=== PATIENT | female | born 1980 | race Two or more races ===

== ENCOUNTER → 2017-07-29 | Outpatient (CLI) | payer BC | END | disposition home or self-care (01) | LOC: LAB 10:48 | PROVIDERS: ATTEND Specialist | DX: D26.0 Other benign neoplasm of cervix uteri (principal) ==

== ENCOUNTER → 2019-07-27 | Outpatient (CLI) | payer BC | END | disposition home or self-care (01) | LOC: LAB 10:26 | PROVIDERS: ATTEND Specialist | DX: N91.2 Amenorrhea, unspecified (principal) | CPT/HCPCS: 36415; 84702 ==

== ENCOUNTER 2020-01-01 17:20 | Observation (INO) | payer BC ==
[~2020-01-01] VITALS: Ht 162.6 cm; Wt 96.6 kg
[2020-01-01] MEDS ORDERED: PREN27TA7 OR (17:54)
[2020-01-01] MEDS ORDERED: TERBUTALINE SULFATE 1 MG/ML 1ML VIAL SC SCH (19:00)
[2020-01-01] MEDS ORDERED: TERBUTALINE SULFATE 1 MG/ML 1ML VIAL SC ONE (19:04)
[2020-01-01] MEDS ORDERED: NIFEdipine 10 MG CAP PO ONE (20:00)
== END 2020-01-01 20:17 | disposition home or self-care (01) ==
LOC: LDRP 17:20
PROVIDERS: ADMIT Obstetrics & Gynecology; ATTEND Obstetrics & Gynecology
DX: O60.02 Preterm labor without delivery, second trimester (principal); O26.892 Other specified pregnancy related conditions, second trimester; N89.8 Other specified noninflammatory disorders of vagina; O62.9 Abnormality of forces of labor, unspecified; Z3A.26 26 weeks gestation of pregnancy
CPT/HCPCS: 59025; 76805; 76817; 81002; 84112; 96372; G0378; J3105; Q0114

== ENCOUNTER 2020-01-07 12:46 | Observation (INO) | payer BC ==
[~2020-01-07 12:46] MED LIST: PREN27TA7 OR
[2020-01-07] MEDS ORDERED: HYDR250I6 IM (13:51)
[2020-01-07] MEDS ORDERED: NIF10C GT (13:51)
== END 2020-01-07 13:55 | disposition home or self-care (01) ==
LOC: LDRP 12:46
PROVIDERS: ADMIT Obstetrics & Gynecology; ATTEND Obstetrics & Gynecology
DX: O60.02 Preterm labor without delivery, second trimester (principal); O40.2XX0 Polyhydramnios, second trimester, not applicable or unspecified; Z3A.27 27 weeks gestation of pregnancy
CPT/HCPCS: 59025; 76815; 76817; 81002; G0378

== ENCOUNTER 2020-01-15 10:50 | Observation (INO) | payer BC ==
[~2020-01-15 10:50] MED LIST changes: +HYDR250I6 IM; +NIF10C GT
== END 2020-01-15 11:35 | disposition home or self-care (01) ==
LOC: LDRP 10:50
PROVIDERS: ADMIT Obstetrics & Gynecology; ATTEND Obstetrics & Gynecology
DX: O60.03 Preterm labor without delivery, third trimester (principal); Z3A.28 28 weeks gestation of pregnancy
CPT/HCPCS: 59025; 81002; G0378

== ENCOUNTER 2020-01-22 10:02 | Observation (INO) | payer BC | END 2020-01-22 11:22 | disposition home or self-care (01) | LOC: LDRP 10:02 | PROVIDERS: ADMIT Obstetrics & Gynecology; ATTEND Obstetrics & Gynecology | DX: O60.03 Preterm labor without delivery, third trimester (principal); O09.523 Supervision of elderly multigravida, third trimester; Z3A.29 29 weeks gestation of pregnancy | CPT/HCPCS: 59025; 81002; G0378 ==

== ENCOUNTER 2020-02-02 12:58 | Observation (INO) | payer BC | END 2020-02-02 14:10 | disposition home or self-care (01) | LOC: LDRP 12:58 | PROVIDERS: ADMIT Obstetrics & Gynecology; ATTEND Obstetrics & Gynecology | DX: O60.03 Preterm labor without delivery, third trimester (principal); Z3A.31 31 weeks gestation of pregnancy | CPT/HCPCS: 59025; 76818; 81002; 82948; 82962; G0378 ==

== ENCOUNTER 2020-02-12 13:25 | Observation (INO) | payer BC ==
[2020-02-12] MEDS ORDERED: GLYB2.5T8 PO (14:33)
== END 2020-02-12 14:28 | disposition home or self-care (01) ==
LOC: LDRP 13:25
PROVIDERS: ADMIT Specialist; ATTEND Specialist
DX: O24.419 Gestational diabetes mellitus in pregnancy, unspecified control (principal); O60.03 Preterm labor without delivery, third trimester; O09.523 Supervision of elderly multigravida, third trimester; Z3A.32 32 weeks gestation of pregnancy
CPT/HCPCS: 59025; 76818; 81002; 82948; 82962; G0378

== ENCOUNTER 2020-02-17 10:28 | Observation (INO) | payer BC ==
[~2020-02-17 10:28] MED LIST changes: +GLYB2.5T8 PO
== END 2020-02-17 13:15 | disposition home or self-care (01) ==
LOC: LDRP 10:28
PROVIDERS: ADMIT Obstetrics & Gynecology; ATTEND Obstetrics & Gynecology
DX: O24.410 Gestational diabetes mellitus in pregnancy, diet controlled (principal); O60.03 Preterm labor without delivery, third trimester; O09.523 Supervision of elderly multigravida, third trimester; Z3A.33 33 weeks gestation of pregnancy
CPT/HCPCS: 59025; 76818; 81002; 82948; 82962; G0378

== ENCOUNTER 2020-02-19 11:05 | Observation (INO) | payer BC | END 2020-02-19 12:20 | disposition home or self-care (01) | LOC: LDRP 11:05 | PROVIDERS: ADMIT Obstetrics & Gynecology; ATTEND Obstetrics & Gynecology | DX: O24.419 Gestational diabetes mellitus in pregnancy, unspecified control (principal); O60.03 Preterm labor without delivery, third trimester; Z3A.33 33 weeks gestation of pregnancy | CPT/HCPCS: 59025; 76818; 81002; 82948; 82962; G0378 ==

== ENCOUNTER 2020-02-23 13:05 | Observation (INO) | payer BC ==
[~2020-02-23] VITALS: Ht 162.6 cm; Wt 86.2 kg
[2020-02-23] MEDS ORDERED: BETAMETHASONE ACET (6MG/ML) 5ML VIAL IM ONE (15:15)
== END 2020-02-23 15:30 | disposition home or self-care (01) ==
LOC: LDRP 13:05
PROVIDERS: ADMIT Obstetrics & Gynecology; ATTEND Obstetrics & Gynecology
DX: O60.03 Preterm labor without delivery, third trimester (principal); O24.419 Gestational diabetes mellitus in pregnancy, unspecified control; Z3A.34 34 weeks gestation of pregnancy
CPT/HCPCS: 59025; 76818; 81002; 82962; 84112; 96372; G0378; J0702; Q0114

== ENCOUNTER 2020-02-24 10:15 | Observation (INO) | payer BC ==
[2020-02-24] MEDS ORDERED: BETAMETHASONE ACET (6MG/ML) 5ML VIAL ONE (11:14)
[2020-02-24] MEDS ORDERED: BETAMETHASONE ACET (6MG/ML) 5ML VIAL IM SCH (22:00)
== END 2020-02-24 11:50 | disposition home or self-care (01) ==
LOC: LDRP 10:15
PROVIDERS: ADMIT Specialist; ATTEND Specialist
DX: O60.03 Preterm labor without delivery, third trimester (principal); O24.419 Gestational diabetes mellitus in pregnancy, unspecified control; Z3A.34 34 weeks gestation of pregnancy
CPT/HCPCS: 59025; 81002; 82962; G0378

== ENCOUNTER 2020-03-01 12:57 | Observation (INO) | payer BC | END 2020-03-01 15:24 | disposition home or self-care (01) | LOC: LDRP 12:57 | PROVIDERS: ADMIT Obstetrics & Gynecology; ATTEND Obstetrics & Gynecology | DX: O24.415 Gestational diabetes mellitus in pregnancy, controlled by oral hypoglycemic drugs (principal); O60.03 Preterm labor without delivery, third trimester; Z87.51 Personal history of pre-term labor; Z79.899 Other long term (current) drug therapy; Z3A.35 35 weeks gestation of pregnancy | CPT/HCPCS: 59025; 76818; 81002; 82948; 82962; G0378 ==

== ENCOUNTER 2020-03-04 13:11 | Observation (INO) | payer BC ==
[~2020-03-04 13:11] MED LIST changes: -NIF10C GT; +NIF10C PO; -PREN27TA7 OR; +PREN27TA7 PO
== END 2020-03-04 14:25 | disposition home or self-care (01) ==
LOC: LDRP 13:11
PROVIDERS: ADMIT Obstetrics & Gynecology; ATTEND Obstetrics & Gynecology
DX: O24.419 Gestational diabetes mellitus in pregnancy, unspecified control (principal); O60.03 Preterm labor without delivery, third trimester; Z3A.35 35 weeks gestation of pregnancy
CPT/HCPCS: 59025; 76818; 81002; 82948; 82962; G0378

== ENCOUNTER 2020-03-07 16:30 | Observation (INO) | payer BC | END 2020-03-07 18:23 | disposition home or self-care (01) | LOC: UNDOADMOB 16:30 → LDRP 16:30 → UNDODISOB 18:23 | PROVIDERS: ADMIT Specialist; ATTEND Specialist | DX: O24.419 Gestational diabetes mellitus in pregnancy, unspecified control (principal); O26.873 Cervical shortening, third trimester; Z3A.36 36 weeks gestation of pregnancy | CPT/HCPCS: 59025; 76818; 81002; 82948; 82962; G0378 ==

== ENCOUNTER 2020-03-15 13:45 | Observation (INO) | payer BC ==
[~2020-03-15 13:45] MED LIST changes: +ALBUAER3 IN; +GLYB1.257 PO; -HYDR250I6 IM; +PREN-96 PO
== END 2020-03-15 15:00 | disposition home or self-care (01) ==
LOC: LDRP 13:45
PROVIDERS: ADMIT Specialist; ATTEND Specialist
DX: O24.419 Gestational diabetes mellitus in pregnancy, unspecified control (principal); Z3A.37 37 weeks gestation of pregnancy
CPT/HCPCS: 59025; 76818; 81002; G0378

== ENCOUNTER 2020-03-18 13:00 | Observation (INO) | payer BC | END 2020-03-18 15:00 | disposition home or self-care (01) | LOC: LDRP 13:00 | PROVIDERS: ADMIT Specialist; ATTEND Specialist | DX: O24.419 Gestational diabetes mellitus in pregnancy, unspecified control (principal); Z3A.37 37 weeks gestation of pregnancy | CPT/HCPCS: 59025; 76818; 81002; 82948; 82962; G0378 ==

== ENCOUNTER → 2020-03-22 | Outpatient (CLI) | payer BC ==
[2020-03-22 08:28] LABS: Basophils # (auto) 0 10 ^3/uL (0-0.2); Basophils % (auto) 0.5 % (0.0-2.0); Eosinophils # (auto) 0.1 10 ^3/uL (0-0.8); Eosinophils % (auto) 1.6 % (0.0-7.0); Lymphocytes % (auto) 30.4 % (10.0-50.0); Mean Corpuscular Hemoglobin 27.4 pg (28.0-32.0); Mean Corpuscular Hgb Conc. 32.5 g/dL (32.0-36.0); Mean Corpuscular Volume 84.2 fL (80.0-100.0); Monocytes # (auto) 0.5 10 ^3/uL (0-1.3); Monocytes % (auto) 7.5 % (0.0-12.0); Nucleated Red Blood Cells % 0.1 %; Platelet Count (auto) 227 10^3/uL (140-450); Red Blood Cells 4.39 10^6/uL (4.0-5.20); Red Cell Distribution Width 16.9 % (11.8-14.3); White Blood Cell 6.7 10^3/uL (4.4-10.8)
[2020-03-23 05:07] LABS: RPR Non Reactive (Non Reactive)
== END | disposition home or self-care (01) ==
LOC: LAB 07:57
PROVIDERS: ATTEND Obstetrics & Gynecology
DX: O09.90 Supervision of high risk pregnancy, unspecified, unspecified trimester (principal); Z11.3 Encounter for screening for infections with a predominantly sexual mode of transmission; Z3A.38 38 weeks gestation of pregnancy
CPT/HCPCS: 36415; 84112; 85025; 86592

== ENCOUNTER 2020-03-25 10:04 | Inpatient (IN) | payer BC ==
[~2020-03-25] VITALS: Ht 162.6 cm; Wt 98.5 kg
[2020-03-25] MEDS ORDERED: miSOPROStol 50 MCG per PRE-CUT 1/2 TAB PO ONE (11:45)
[2020-03-25] MEDS ORDERED: PROMETHAZINE HCL 25 MG/ML 1ML IV PRN (12:00)
[2020-03-25] MEDS ORDERED: PHISODERM TOP SOLN 240ML BTL TOP PRN (12:00)
[2020-03-25] MEDS ORDERED: WITCH HAZEL-GLYCERIN PAD TOP PRN (12:00)
[2020-03-25] MEDS ORDERED: DERMOPLAST 60ML BOTTLE TOP PRN (12:00)
[2020-03-25] MEDS ORDERED: LIDOCAINE 2%HCL (LOCAL ANESTH.) INJ 20ML MDV IJ ONE ×2 (12:00→19:15)
[2020-03-25] MEDS ORDERED: BUTORPHANOL TARTRATE 2 MG/1 ML VIAL IV PRN ×2 (12:00)
[2020-03-25 12:55] LABS: Alcohol, Urine < 3.0 mg/dL (0-10); Amphetamine Screen, Urine NEGATIVE (NEGATIVE); Barbiturate Scree,Urine NEGATIVE (NEGATIVE); Benzodiazephine Screen, Urine NEGATIVE (NEGATIVE); Cannabinoid Screen, Urine NEGATIVE (NEGATIVE); Cocaine Screen, Urine NEGATIVE (NEGATIVE); Opiate Scree,Urine NEGATIVE (NEGATIVE); Phencyclidine Screen, Urine NEGATIVE (NEGATIVE); Urine Bacteria MANY /hpf (None Seen); Urine Blood 3+ /uL (Negative); Urine Mucus FEW (None Seen); Urine Specific Gravity 1.017 (1.001-1.035); Urine WBC 782 /hpf (0 - 5); Urine WBC Clumps PRESENT /hpf (None Seen)
[2020-03-25] MEDS: LACTATED RINGER'S 1,000 ML IV SCH ×2 (13:18→21:09)
[2020-03-25] MEDS ORDERED: PENICILLIN G POT 5MIL/D5 50ML 50 ML IV ONE ×2 (13:30→13:31)
[2020-03-25] MEDS ORDERED: LACT. RINGERS/OXYTOCIN 20UNITS 1,000 ML IV PRN (15:15)
[2020-03-25 15:19] LABS: Basophils # (auto) 0 10 ^3/uL (0-0.2); Basophils % (auto) 0.3 % (0.0-2.0); Eosinophils # (auto) 0.1 10 ^3/uL (0-0.8); Eosinophils % (auto) 1.1 % (0.0-7.0); Hematocrit 33.2 % (36.0-46.0); Lymphocytes # (auto) 2.2 10 ^3/uL (0.4-5.4); Lymphocytes % (auto) 27.6 % (10.0-50.0); Mean Corpuscular Hemoglobin 27.9 pg (28.0-32.0); Mean Corpuscular Hgb Conc. 33.2 g/dL (32.0-36.0); Monocytes # (auto) 0.4 10 ^3/uL (0-1.3); Monocytes % (auto) 5.2 % (0.0-12.0); Neutrophils # (auto) 5.2 10 ^3/uL (1.6-8.6); Neutrophils % (auto) 65.8 % (37.0-80.0); Nucleated Red Blood Cells % 0.1 %; Platelet Count (auto) 210 10^3/uL (140-450); Red Blood Cells 3.95 10^6/uL (4.0-5.20); Red Cell Distribution Width 17.2 % (11.8-14.3); White Blood Cell 7.9 10^3/uL (4.4-10.8)
[2020-03-25 15:36] LABS: Albumin 2.3 g/dL (3.4-5.0); Calcium 8.3 mg/dL (8.5-10.1); Potassium 3.9 mmol/L (3.5-5.1); Uric Acid 4.2 mg/dL (2.6-6.0)
[2020-03-25 15:38] LABS: BUN/Creatinine Ratio 14.3; Bilirubin, Total 0.2 mg/dL (0.2-1.0); Total Protein 6.2 g/dL (6.4-8.2)
[2020-03-25 16:31] LABS: INR 0.94 (0.9-1.15); Partial Thromboplastin Time 25.6 sec (23.0-31.2)
[2020-03-25] MEDS ORDERED: PENICILLIN G POTASSIUM 2,500,000 UNITS in D5W 5% 50 ML IV SCH (18:30)
[2020-03-25] MEDS ORDERED: fentaNYL CITRATE 100 MCG/2 ML VL IV ONE (19:15)
[2020-03-25] MEDS ORDERED: NALOXONE HCL 0.4 MG/ML VIAL IV ONE ×3 (19:15→21:00)
[2020-03-25] MEDS ORDERED: ROPIVACAINE HCL 200 ML EPI SCH (19:15)
[2020-03-25] MEDS ORDERED: ePHEDrine SULFATE 50 MG/ML AMP IV ONE ×3 (19:15→21:00)
[2020-03-25] MEDS ORDERED: LIDOCAINE HCL 2 %PF INJ 10ML AMP IJ ONE ×2 (20:15→20:18)
[2020-03-25] MEDS ORDERED: LACT. RINGERS/OXYTOCIN 20UNITS 1,000 ML IV SCH (20:15)
[2020-03-25] MEDS ORDERED: LACTATED RINGER'S 500 ML IV ONE (21:00)
[2020-03-25] MEDS ORDERED: ROPIVACAINE HCL 100 ML EPI SCH (21:00)
[2020-03-25] MEDS ORDERED: SODIUM CHLORIDE 0.9% 500 ML IV PRN (21:00)
[2020-03-25 21:44] LABS: Basophils # (auto) 0 10 ^3/uL (0-0.2); Basophils % (auto) 0.5 % (0.0-2.0); Eosinophils # (auto) 0.1 10 ^3/uL (0-0.8); Eosinophils % (auto) 1.1 % (0.0-7.0); Hemoglobin 10.9 g/dL (12.2-16.2); Lymphocytes # (auto) 2.5 10 ^3/uL (0.4-5.4); Lymphocytes % (auto) 27.9 % (10.0-50.0); Mean Corpuscular Hemoglobin 27.3 pg (28.0-32.0); Mean Corpuscular Hgb Conc. 32.2 g/dL (32.0-36.0); Mean Corpuscular Volume 84.9 fL (80.0-100.0); Monocytes # (auto) 0.5 10 ^3/uL (0-1.3); Monocytes % (auto) 5.5 % (0.0-12.0); Neutrophils # (auto) 5.8 10 ^3/uL (1.6-8.6); Nucleated Red Blood Cells % 0.1 %; Platelet Count (auto) 217 10^3/uL (140-450); Red Cell Distribution Width 17.4 % (11.8-14.3); White Blood Cell 8.9 10^3/uL (4.4-10.8)
[2020-03-25] MEDS ORDERED: D5W/LACTATED RINGERS 1,000 ML IV SCH (22:15)
[2020-03-26] MEDS ORDERED: METHYLERGONOVINE MALEATE 0.2 MG/ML AMP IM ONE (01:12)
[2020-03-26] MEDS ORDERED: miSOPROStol 100 mcg TAB ONE (01:13)
[2020-03-26] MEDS ORDERED: LACT. RINGERS/OXYTOCIN 20UNITS 1,000 ML IV ONE (01:30)
--- NOTE | 2020-03-26 04:45 | NUR ---
Ambulation: Patient OOB with standby assistance by RN. Patient ambulated to bathroom with steady gait. Patient able to void 800ml of clear yellow urine without difficulty. [facility] teaching provided with returned demonstration by patient. Clean gown provided and bed linen changed. Patient ambulated back to bed with steady gait and no distress noted.
[2020-03-26 05:06] LABS: RPR Non Reactive (Non Reactive)
[2020-03-26] MEDS: IBUPROFEN 600 MG TAB PO PRN ×4 (09:10→20:05)
[2020-03-26 11:00] VITALS: BP 127/71
[2020-03-26 15:00] VITALS: BP 116/51
[2020-03-26 18:45] VITALS: BP 136/67
[2020-03-26] MEDS ORDERED: ACETAMINOPHEN 325 MG TAB PO PRN (20:00)
[2020-03-26] MEDS ORDERED: HYDROcodone-ACET 10/325MG TAB PO PRN (20:00)
[2020-03-26] MEDS: DOCUSATE SOD 100 MG CAP PO SCH (21:53)
[2020-03-26 23:00] VITALS: BP 136/81
[2020-03-27] MEDS: IBUPROFEN 600 MG TAB PO PRN (02:14)
[2020-03-27 03:00] VITALS: BP 128/72
[2020-03-27 06:40] VITALS: BP 123/73
[2020-03-27] MEDS: DOCUSATE SOD 100 MG CAP PO SCH (10:00)
[2020-03-27 10:32] VITALS: BP 131/80
--- NOTE | 2020-03-27 11:05 | NUR ---
Discharge: Discharge instructions given as ordered by Dr Urrutia. Pt encouraged to make follow up appointment on Saturday03/28/[address] Salinas for two weeks. Patient received [facility] [employer] handout and received teaching on post warning signs. All questions and concerns were addressed. Patient verbalized understanding. Medication reconciliation completed and copy given to patient. All required/requested vaccines given and copies of vaccinations given to patient. Patient encouraged to prepare to depart unit.
--- NOTE | 2020-03-27 11:20 | NUR ---
Discharge: Patient ambulates off unit with all personal belongings and copies of discharge and handouts, accompanied by staff and family member. No distress noted at time of departure, no adverse changes in status since initial assessment.
== END 2020-03-27 11:20 | disposition home or self-care (01) | DRG 807 ==
LOC: LDRP 10:04 → OBSVTOIN 10:04 → LDRP 03-26 06:22
PROVIDERS: ADMIT Specialist; ATTEND Specialist
PROC: 3E0R3BZ Introduction of Anesthetic Agent into Spinal Canal, Percutaneous Approach (ICD-10-PCS; 2020-03-25)
PROC: 00HU33Z Insertion of Infusion Device into Spinal Canal, Percutaneous Approach (ICD-10-PCS; 2020-03-25)
PROC: 10E0XZZ Delivery of Products of Conception, External Approach (ICD-10-PCS; principal; 2020-03-26)
PROC: 0W8NXZZ Division of Female Perineum, External Approach (ICD-10-PCS; 2020-03-26)
DX: O42.92 Full-term premature rupture of membranes, unspecified as to length of time between rupture and onset of labor (principal); Z37.0 Single live birth; Z3A.39 39 weeks gestation of pregnancy; Z86.32 Personal history of gestational diabetes; Z20.828 Contact with and (suspected) exposure to other viral communicable diseases
CPT/HCPCS: 36415; 59025; 59409; 62282; 80053; 80307; 81001; 81002; 82948; 82962; 84112; 84550; 85025; 85610; 85730; 86592; 86850; 86900; 86901; 87426; 96360; 96361; 96365; 96366; G0378; J2540; J2590; J7060

== ENCOUNTER 2020-07-14 07:00 | Emergency (ER) | payer SELFPAY ==
[~2020-07-14] VITALS: Ht 162.6 cm; Wt 90.7 kg
[~2020-07-14 07:00] MED LIST changes: -GLYB1.257 PO; -GLYB2.5T8 PO; -NIF10C PO; -PREN27TA7 PO
[2020-07-14 07:42] VITALS: BP 124/53
== END 2020-07-14 08:05 | disposition home or self-care (01) ==
LOC: ER 07:00
DX: B02.9 Zoster without complications (principal); Z79.899 Other long term (current) drug therapy

== ENCOUNTER → 2022-03-20 | Outpatient (CLI) | payer BC ==
[2022-03-20 09:52] LABS: Basophils # (auto) 0 10 ^3/uL (0-0.2); Basophils % (auto) 0.4 % (0.0-2.0); Eosinophils # (auto) 0.1 10 ^3/uL (0-0.8); Eosinophils % (auto) 1.8 % (0.0-7.0); Hematocrit 40.5 % (36.0-46.0); Lymphocytes # (auto) 2.9 10 ^3/uL (0.4-5.4); Lymphocytes % (auto) 38.2 % (10.0-50.0); Mean Corpuscular Hemoglobin 28.5 pg (28.0-32.0); Mean Corpuscular Hgb Conc. 32.2 g/dL (32.0-36.0); Mean Corpuscular Volume 88.6 fL (80.0-100.0); Monocytes # (auto) 0.3 10 ^3/uL (0-1.3); Monocytes % (auto) 4.3 % (0.0-12.0); Neutrophils # (auto) 4.1 10 ^3/uL (1.6-8.6); Neutrophils % (auto) 55.3 % (37.0-80.0); Red Blood Cells 4.57 10^6/uL (4.0-5.20); Red Cell Distribution Width 13.4 % (11.8-14.3); White Blood Cell 7.5 10^3/uL (4.4-10.8)
[2022-03-20 09:53] LABS: Urine Bacteria NONE SEEN /hpf (None Seen); Urine Blood Negative /uL (Negative); Urine Specific Gravity 1.021 (1.001-1.035); Urine WBC <1 /hpf (0 - 5)
[2022-03-20 10:07] LABS: Albumin 3.7 g/dL (3.4-5.0); Potassium 4.1 mmol/L (3.5-5.1)
[2022-03-20 10:12] LABS: BUN/Creatinine Ratio 20.9; Bilirubin, Total 0.3 mg/dL (0.2-1.0); Total Protein 8.1 g/dL (6.4-8.2)
== END | disposition home or self-care (01) ==
LOC: LAB 09:24
PROVIDERS: ATTEND Student in an Organized Health Care Education/Training Program
DX: R73.9 Hyperglycemia, unspecified (principal); E55.9 Vitamin D deficiency, unspecified; R03.0 Elevated blood-pressure reading, without diagnosis of hypertension
CPT/HCPCS: 36415; 80053; 80061; 81001; 82306; 83036; 84439; 84443; 85025

== ENCOUNTER 2023-03-21 12:32 | Inpatient (IN) | payer BC ==
[~2023-03-21] VITALS: Ht 162.6 cm; Wt 106.2 kg
[2023-03-21] MEDS ORDERED: SODIUM CHLORIDE 0.9% 1,000 ML IV ONE (12:45)
[2023-03-21 13:12] VITALS: PULSE 127; RESP 17; O2SAT 100
[2023-03-21 13:38] LABS: Basophils # (auto) 0.1 10 ^3/uL (0-0.2); Basophils % (auto) 0.3 % (0.0-2.0); Eosinophils # (auto) 0 10 ^3/uL (0-0.8); Eosinophils % (auto) 0.1 % (0.0-7.0); Hematocrit 33.8 % (36.0-46.0); Hemoglobin 10.9 g/dL (12.2-16.2); Lymphocytes # (auto) 2.9 10 ^3/uL (0.4-5.4); Lymphocytes % (auto) 12.5 % (10.0-50.0); Mean Corpuscular Hemoglobin 29.3 pg (28.0-32.0); Mean Corpuscular Hgb Conc. 32.4 g/dL (32.0-36.0); Mean Corpuscular Volume 90.6 fL (80.0-100.0); Monocytes # (auto) 0.6 10 ^3/uL (0-1.3); Monocytes % (auto) 2.4 % (0.0-12.0); Neutrophils # (auto) 19.6 10 ^3/uL (1.6-8.6); Neutrophils % (auto) 84.7 % (37.0-80.0); Red Blood Cells 3.73 10^6/uL (4.0-5.20); Red Cell Distribution Width 14.1 % (11.8-14.3); White Blood Cell 23.1 10^3/uL (4.4-10.8)
[2023-03-21 13:58] LABS: Alanine Aminotransferase 35 U/L (7-40); Albumin 4.5 g/dL (3.2-4.8); Alkaline Phosphatase 57 U/L (46-116); Anion Gap 11 (5-15); Aspartate Aminotransferase 26 U/L (13-40); BUN/Creatinine Ratio 13.4 (10.0-20.0); Bilirubin, Total 0.2 mg/dL (0.2-1.0); Blood Urea Nitrogen 18 mg/dL (9-23); Calcium 9.2 mg/dL (8.7-10.4); Carbon Dioxide 18 mmol/L (20-30); Chloride 107 mmol/L (98-107); Glucose 222 mg/dL (74-106); Lipase 46 U/L (12-53); Magnesium 1.9 mg/dL (1.6-2.6); Potassium 5.3 mmol/L (3.5-5.1); Sodium 136 mmol/L (136-145); Total Protein 6.8 g/dL (5.7-8.2)
[2023-03-21 14:01] LABS: Lactic Acid w/Reflex 5.1 mmol/L (0.4-2.0)
[2023-03-21] MEDS ORDERED: cefTRIAXone 1GM/50ML D5W 50 ML IV ONE (14:15)
[2023-03-21] MEDS ORDERED: VANCOMYCIN 1GM/250ML 250 ML IV ONE (14:15)
[2023-03-21] MEDS ORDERED: SODIUM CHLORIDE 0.9% 2,850 ML IV ONE (14:30)
[2023-03-21 16:08] LABS: Urine Bacteria NONE SEEN /hpf (None Seen); Urine Blood Negative /uL (Negative); Urine Clarity HAZY (Clear); Urine Color Yellow (Yellow); Urine Hyaline Cast MOD /lpf (0 - 2); Urine Mucus FEW (None Seen); Urine Protein, UAD 2+ (Negative); Urine Specific Gravity 1.016 (1.001-1.035); Urine Urobilinogen Normal (Negative); Urine WBC 2 /hpf (0 - 5)
[2023-03-21] MEDS ORDERED: SODIUM CHLORIDE 0.9% 1,000 ML IV SCH (16:15)
[2023-03-21] MEDS ORDERED: ONDANSETRON HCL 4 MG/2 ML VIAL IV PRN ×2 (16:15→18:00)
[2023-03-21] MEDS ORDERED: MIDAZOLAM HCL 2MG/2ML 2ml VIAL (1mg/ml) ONE (16:28)
[2023-03-21] MEDS ORDERED: MEPERIDINE HCL (25 MG/ML) 1ML VIAL ONE (16:28)
[2023-03-21] MEDS ORDERED: fentaNYL CITRATE 100 MCG/2 ML VL ONE (16:28)
[2023-03-21 16:44] LABS: INR 0.99 (0.9-1.15); Partial Thromboplastin Time 25.7 SEC (24.5-34.5); Prothrombin Time 10.4 sec (9.3-11.8)
[2023-03-21] MEDS ORDERED: ONDANSETRON HCL 4 MG/2 ML VIAL ONE (17:08)
[2023-03-21] MEDS ORDERED: DexAMETHasone SOD PHOS 10MG/1ML VIAL INJ ONE (17:08)
[2023-03-21] MEDS ORDERED: PROPOFOL 10 MG/ML 20 ML IV ONE (17:08)
[2023-03-21] MEDS ORDERED: SUGAMMADEX 200mg/2ml Vial (100MG/ML) IV ONE (17:09)
[2023-03-21 17:28] VITALS: O2SAT 100
[2023-03-21] MEDS ORDERED: MIDAZOLAM HCL 2MG/2ML 2ml VIAL (1mg/ml) IV PRN (18:00)
[2023-03-21] MEDS ORDERED: ePHEDrine SULFATE 50 MG/ML AMP IV PRN (18:00)
[2023-03-21] MEDS ORDERED: LABETALOL HCL 5 MG/ML 4ML SYRINGE IV PRN (18:00)
[2023-03-21] MEDS ORDERED: MORPHINE SULFATE 4 MG/ML SYR/VIAL IV PRN (18:00)
[2023-03-21] MEDS ORDERED: HYDROmorphone HCL 2 MG/ML VL/or syr IV PRN ×2 (18:00→19:00)
[2023-03-21] MEDS ORDERED: NITROGLYCERIN 0.4 MG SL TAB SL PRN (18:15)
[2023-03-21] MEDS ORDERED: MORPHINE SULFATE INJ 2 MG/ml SYRG IV PRN (18:15)
[2023-03-21] MEDS ORDERED: ALBUTEROL SULF 2.5 MG/0.5ML(0.5%) NEB SOLN NEB PRN (18:45)
[2023-03-21] MEDS ORDERED: IPRATROPIUM BROM 0.5 MG/2.5ML INH SOL NEB PRN (18:45)
[2023-03-21 18:58] VITALS: BP 143/59; PULSE 87; RESP 20; TEMP 98.3; O2SAT 100
[2023-03-21] MEDS: HYDROmorphone HCL 2 MG/ML VL/or syr IV PRN ×2 (20:12→23:28)
[2023-03-21] MEDS: ceFAZolin 1GM/50ML 50 ML IV SCH (21:50)
[2023-03-21] MEDS: LACTATED RINGER'S 1,000 ML IV SCH (21:52)
[2023-03-21 22:00] VITALS: PULSE 112; RESP 21; O2SAT 99
[2023-03-21] MEDS ORDERED: FLUT500M2 INH (22:24)
[2023-03-21 22:49] LABS: Basophils # (auto) 0 10 ^3/uL (0-0.2); Basophils % (auto) 0.1 % (0.0-2.0); Eosinophils # (auto) 0 10 ^3/uL (0-0.8); Hematocrit 32.6 % (36.0-46.0); Hemoglobin 10.8 g/dL (12.2-16.2); Lymphocytes # (auto) 1.5 10 ^3/uL (0.4-5.4); Mean Corpuscular Hgb Conc. 33.1 g/dL (32.0-36.0); Mean Corpuscular Volume 90.7 fL (80.0-100.0); Monocytes # (auto) 0.3 10 ^3/uL (0-1.3); Monocytes % (auto) 2.2 % (0.0-12.0); Neutrophils # (auto) 13.4 10 ^3/uL (1.6-8.6); Neutrophils % (auto) 87.7 % (37.0-80.0); Red Cell Distribution Width 14.5 % (11.8-14.3); White Blood Cell 15.3 10^3/uL (4.4-10.8)
[2023-03-21 23:00] VITALS: O2SAT 97
[2023-03-22] VITALS (10 sets, daily range): BP systolic 104–127; BP diastolic 39–54; PULSE 78–110; RESP 16–22; TEMP 98.2–98.8; O2SAT 90–100
[2023-03-22] MEDS ORDERED: diphenhdrAMINE HCL 50 MG/1 ML VL IV PRN (01:15)
[2023-03-22] MEDS: HYDROmorphone HCL 2 MG/ML VL/or syr IV PRN (05:33)
[2023-03-22] MEDS: ceFAZolin 1GM/50ML 50 ML IV SCH ×3 (05:33→21:33)
[2023-03-22] MEDS: LACTATED RINGER'S 1,000 ML IV SCH ×2 (05:47→11:01)
[2023-03-22 06:02] LABS: Basophils # (auto) 0 10 ^3/uL (0-0.2); Eosinophils # (auto) 0 10 ^3/uL (0-0.8); Hematocrit 28.3 % (36.0-46.0); Hemoglobin 9.5 g/dL (12.2-16.2); Lymphocytes % (auto) 11.6 % (10.0-50.0); Mean Corpuscular Hemoglobin 30.2 pg (28.0-32.0); Mean Corpuscular Hgb Conc. 33.6 g/dL (32.0-36.0); Mean Corpuscular Volume 89.9 fL (80.0-100.0); Monocytes # (auto) 0.7 10 ^3/uL (0-1.3); Monocytes % (auto) 3.9 % (0.0-12.0); Neutrophils # (auto) 14.8 10 ^3/uL (1.6-8.6); Neutrophils % (auto) 84.5 % (37.0-80.0); Red Blood Cells 3.15 10^6/uL (4.0-5.20); Red Cell Distribution Width 14.5 % (11.8-14.3); White Blood Cell 17.4 10^3/uL (4.4-10.8)
[2023-03-22] MEDS ORDERED: BISACODYL 10 MG RECT SUPP PR PRN (08:15)
[2023-03-22] MEDS ORDERED: HYDROcodone-ACET 5/325MG TAB PO PRN (08:15)
[2023-03-22] MEDS ORDERED: HYDR-4902 PO (08:16)
[2023-03-22] MEDS ORDERED: DOCU-94 PO (08:16)
[2023-03-22 09:55] LABS: Hematocrit 27.5 % (36.0-46.0); Hemoglobin 9.1 g/dL (12.2-16.2)
[2023-03-22] MEDS ORDERED: DOCUSATE CALCIUM 240 MG CAP PO SCH (10:00)
[2023-03-22] MEDS: DOCUSATE SOD 100 MG CAP PO SCH ×2 (10:58→21:33)
[2023-03-22] MEDS: IBUPROFEN 800 MG TAB PO PRN ×2 (12:55→20:11)
[2023-03-22] MEDS ORDERED: MORPHINE SULFATE INJ 2 MG/ml SYRG IV PRN (17:15)
[2023-03-22 22:41] LABS: Hemoglobin 7.7 g/dL (12.2-16.2)
[2023-03-23] VITALS (7 sets, daily range): BP systolic 131–140; BP diastolic 64–109; PULSE 72–111; RESP 16–20; TEMP 98.3–99.3; O2SAT 97–98
[2023-03-23] MEDS: LACTATED RINGER'S 1,000 ML IV SCH (05:26)
[2023-03-23] MEDS: ceFAZolin 1GM/50ML 50 ML IV SCH (05:34)
[2023-03-23] MEDS: IBUPROFEN 800 MG TAB PO PRN (05:39)
[2023-03-23 06:06] LABS: Basophils # (auto) 0.1 10 ^3/uL (0-0.2); Basophils % (auto) 0.6 % (0.0-2.0); Eosinophils # (auto) 0 10 ^3/uL (0-0.8); Eosinophils % (auto) 0.1 % (0.0-7.0); Hemoglobin 9.9 g/dL (12.2-16.2); Lymphocytes # (auto) 4.4 10 ^3/uL (0.4-5.4); Lymphocytes % (auto) 32.5 % (10.0-50.0); Mean Corpuscular Hemoglobin 30.5 pg (28.0-32.0); Mean Corpuscular Volume 89.6 fL (80.0-100.0); Monocytes # (auto) 0.8 10 ^3/uL (0-1.3); Monocytes % (auto) 5.6 % (0.0-12.0); Neutrophils # (auto) 8.4 10 ^3/uL (1.6-8.6); Neutrophils % (auto) 61.2 % (37.0-80.0); Nucleated Red Blood Cells % 0.1 %; Red Blood Cells 3.23 10^6/uL (4.0-5.20); Red Cell Distribution Width 14.4 % (11.8-14.3); White Blood Cell 13.6 10^3/uL (4.4-10.8)
== END 2023-03-23 12:00 | disposition home or self-care (01) | DRG 817 ==
LOC: ER 12:32 → EDBD 12:32 → ER 15:58 → OVERFLOW 18:02 → TELE-EAST 19:59
PROVIDERS: ADMIT Obstetrics & Gynecology; ATTEND Obstetrics & Gynecology
PROC: 0UT70ZZ Resection of Bilateral Fallopian Tubes, Open Approach (ICD-10-PCS; 2023-03-21)
PROC: 10T20ZZ Resection of Products of Conception, Ectopic, Open Approach (ICD-10-PCS; 2023-03-21)
PROC: 0UPD0HZ Removal of Contraceptive Device from Uterus and Cervix, Open Approach (ICD-10-PCS; 2023-03-21)
PROC: 30233N1 Transfusion of Nonautologous Red Blood Cells into Peripheral Vein, Percutaneous Approach (ICD-10-PCS; principal; 2023-03-21 16:26)
DX: O00.101 Right tubal pregnancy without intrauterine pregnancy (principal); K66.1 Hemoperitoneum; D62 Acute posthemorrhagic anemia; N17.9 Acute kidney failure, unspecified; Z68.41 Body mass index [BMI] 40.0-44.9, adult; D72.829 Elevated white blood cell count, unspecified; J45.909 Unspecified asthma, uncomplicated; N18.9 Chronic kidney disease, unspecified; E66.01 Morbid (severe) obesity due to excess calories
CPT/HCPCS: 36415; 76801; 76817; 80053; 81001; 83605; 83690; 83735; 84702; 85014; 85018; 85025; 85610; 85730; 86850; 86900; 86901; 86920; 87040; 93005; 94640; 99291; G0378; J0690; J0696; J1100; J2250; J2405; J2704

== ENCOUNTER → 2024-02-26 | Outpatient (CLI) | payer BC ==
[~2024-02-26] MED LIST changes: +DOCU-94 PO; +FLUT500M2 INH; +HYDR-4902 PO; -PREN-96 PO
[2024-02-26 10:03] LABS: Urine Bacteria None Seen /hpf (None Seen)
[2024-02-26 11:10] LABS: Basophils # (auto) 0 10 ^3/uL (0-0.2); Basophils % (auto) 0.5 % (0.0-2.0); Eosinophils # (auto) 0.4 10 ^3/uL (0-0.8); Eosinophils % (auto) 4.5 % (0.0-7.0); Hematocrit 39.8 % (36.0-46.0); Hemoglobin 13.2 g/dL (12.2-16.2); Lymphocytes # (auto) 3.2 10 ^3/uL (0.4-5.4); Lymphocytes % (auto) 34.3 % (10.0-50.0); Mean Corpuscular Hemoglobin 29.6 pg (28.0-32.0); Mean Corpuscular Hgb Conc. 33.3 g/dL (32.0-36.0); Mean Corpuscular Volume 89.1 fL (80.0-100.0); Monocytes # (auto) 0.4 10 ^3/uL (0-1.3); Monocytes % (auto) 4.5 % (0.0-12.0); Neutrophils # (auto) 5.2 10 ^3/uL (1.6-8.6); Neutrophils % (auto) 56.2 % (37.0-80.0); Nucleated Red Blood Cells % 0.1 %; Platelet Count (auto) 309 10^3/uL (140-450); Red Blood Cells 4.47 10^6/uL (4.0-5.20); White Blood Cell 9.2 10^3/uL (4.4-10.8)
[2024-02-26 11:26] LABS: Urine Blood Negative /uL (Negative); Urine Clarity Turbid (Clear); Urine Color Light-Yellow (Yellow); Urine Mucus FEW (None Seen); Urine Protein, UAD Negative (Negative); Urine Specific Gravity 1.027 (1.001-1.035); Urine Urobilinogen Normal (Negative); Urine WBC 1 /hpf (0 - 5); Urine pH 5.5 (5.0-9.0)
[2024-02-26 11:36] LABS: Alanine Aminotransferase 31 U/L (7-40); Albumin 4.5 g/dL (3.2-4.8); Alkaline Phosphatase 56 U/L (46-116); Anion Gap 9 (5-15); Aspartate Aminotransferase 13 U/L (13-40); Bilirubin, Total 0.3 mg/dL (0.2-1.0); Blood Urea Nitrogen 12 mg/dL (9-23); Calcium 9.6 mg/dL (8.7-10.4); Carbon Dioxide 22 mmol/L (20-31); Chloride 109 mmol/L (98-107); Cholesterol 166 mg/dL (< 200); Glucose 101 mg/dL (74-106); HDL Cholesterol 48 mg/dL (40-59); LDL Cholesterol 108 mg/dL (< 100); Potassium 4.4 mmol/L (3.5-5.1); Sodium 140 mmol/L (136-145); Total Protein 7.6 g/dL (5.7-8.2); Triglycerides 118 mg/dL (< 150)
== END | disposition home or self-care (01) ==
LOC: LAB 09:30
PROVIDERS: ATTEND Student in an Organized Health Care Education/Training Program
DX: R73.9 Hyperglycemia, unspecified (principal); R03.0 Elevated blood-pressure reading, without diagnosis of hypertension
CPT/HCPCS: 36415; 80053; 80061; 81001; 83036; 84443; 85025